=== PATIENT | male | born 1980 | race Caucasian/White ===

== ENCOUNTER 2020-01-05 16:03 | Emergency (ER) | payer SELFPAY ==
[2020-01-05] MEDS ORDERED: Clindamycin Phosphate 900 MG in Sodium Chloride 0.9% 100 ML IV ONE (16:41)
[2020-01-05] MEDS ORDERED: Diphtheria,Pertussis(Acell),Tetanus Vaccine 0.5 ML Syringe IM ONE (16:41)
[2020-01-05] MEDS ORDERED: Clindamycin Phosphate 600 MG in Sodium Chloride 0.9% 100 ML IV ONE (16:43)
[2020-01-05] MEDS ORDERED: Lidocaine 1% 10 ML MDV INJECT ONE (17:14)
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
== END 2020-01-05 18:15 | disposition home or self-care (01) ==
LOC: JD.ED 16:03
DX: S51.812A Laceration without foreign body of left forearm, initial encounter (principal); Z23 Encounter for immunization; F17.210 Nicotine dependence, cigarettes, uncomplicated; Z88.5 Allergy status to narcotic agent; Z88.1 Allergy status to other antibiotic agents; Z88.8 Allergy status to other drugs, medicaments and biological substances; W26.8XXA Contact with other sharp object(s), not elsewhere classified, initial encounter
CPT/HCPCS: 12032; 90471; 90715; 96365; 99282; J2001; 12002; 99283; J3490; J7050

== ENCOUNTER 2024-07-01 10:45 | Emergency (ER) | payer SELFPAY ==
[2024-07-01] MEDS: Ondansetron 4 MG/2 ML SDV IVPUSH ONE (12:29)
[2024-07-01] MEDS: Sodium Chloride 0.9% 1,000 ML IV ONE (12:29)
[2024-07-01] MEDS: hydrALAZINE 20 MG/ML SDV IVPUSH ONE (12:29)
[2024-07-01 12:31] LABS: BASOPHILS ABSOLUTE AUTO 0.1 K/mm3 (0.0-0.2); BASOPHILS PERCENT AUTO 0.6 % (0.0-1.0); EOSINOPHILS PERCENT AUTO 0.2 % (0.0-6.0); HEMATOCRIT 41.8 % (42.0-52.0); HEMOGLOBIN 13.8 gm/dl (14.0-18.0); IMMATURE GRAN ABSOLUTE AUTO 0.07 K/mm3 (0.00-0.05); IMMATURE GRAN PERCENT AUTO 0.5 % (0.0-0.4); LYMPHOCYTES ABSOLUTE AUTO 1.8 K/mm3 (1.0-4.8); LYMPHOCYTES PERCENT AUTO 12.7 % (24.0-44.0); MEAN CORPUSCULAR HEMOGLOBIN 30.1 pg (28.0-32.0); MEAN CORPUSCULAR VOLUME 91.3 fl (83.0-99.0); MEAN PLATELET VOLUME 9.3 fl (9.4-12.4); MONOCYTES ABSOLUTE AUTO 0.5 K/mm3 (0.0-0.8); MONOCYTES PERCENT AUTO 3.8 % (0.0-8.0); NEUTROPHILS ABSOLUTE AUTO 11.5 K/mm3 (1.8-7.7); NEUTROPHILS PERCENT AUTO 82.2 % (41.0-71.0); PLATELET COUNT,PLT 327 K/mm3 (150-400); RED BLOOD CELL COUNT 4.58 M/mm3 (4.52-5.90); WHITE BLOOD CELL COUNT,WBC 14.04 K/mm3 (3.9-11.3)
[2024-07-01 13:01] LABS: A/G RATIO 0.9 (1-2); ALBUMIN 3.5 g/dl (3.4-5.0); ANION GAP 14.9 (5-15); BILIRUBIN TOTAL 0.5 mg/dL (0.2-1.0); BUN/CREATININE RATIO 16.7 (14-18); C-REACTIVE PROTEIN 0.32 mg/dL (<0.30); CALCIUM 8.5 mg/dL (8.5-10.1); CREATININE 0.9 mg/dL (0.7-1.3); EST CRCL DRUG DOSING (CG) 105.9 mL/min; POTASSIUM,K 3.9 mEq/L (3.5-5.1); PROTEIN TOTAL,TP 7.6 g/dl (6.4-8.2)
[2024-07-01] MEDS: Sodium Chloride 0.9% 10 ML Syringe FLUSH PRN (13:17)
[2024-07-01] MEDS: Iopamidol 612 MG/ML 100 ML Bottle IVPUSH ONE (13:18)
[2024-07-01] MEDS: Famotidine 20 MG/2 ML SDV IVPUSH ONE (13:53)
[2024-07-01] MEDS: Alum Hydrox/Mag Hydrox/Simeth 30 ML, Lidocaine 2% 15 ML PO ONE ×2 (13:53→15:33)
[2024-07-01] MEDS ORDERED: Naloxone 0.4 MG/ML SDV IVPUSH PRN (15:07)
[2024-07-01] MEDS: HYDROmorphone 0.5 MG/0.5 ML Syringe IVPUSH ONE (15:23)
[2024-07-01] MEDS: Metoclopramide 10 MG/2 ML SDV IVPUSH ONE (15:34)
== END 2024-07-01 17:00 | disposition home or self-care (01) ==
LOC: JD.ED 10:45
DX: K29.00 Acute gastritis without bleeding (principal); F17.210 Nicotine dependence, cigarettes, uncomplicated; Z88.1 Allergy status to other antibiotic agents; Z88.6 Allergy status to analgesic agent; Z88.8 Allergy status to other drugs, medicaments and biological substances; Z79.899 Other long term (current) drug therapy
CPT/HCPCS: 36415; 74177; 80053; 83690; 85025; 86140; 96361; 96374; 96375; 99285; A9270; J0360; J2405; J2765; J7030; Q9967; 99284